=== PATIENT | female | born 1945 | race Caucasian/White ===

== ENCOUNTER 2016-12-25 09:31 | Day surgery (SDC) | payer OTHER, MEDICARE ==
[~2016-12-25] VITALS: Ht 154.9 cm; Wt 73.0 kg
[~2016-12-25 09:31] MED LIST: 0.9% Sodium Chloride 1,000 ML IV SCH; ACET-2605 PO; ADAL40PE SQ; ASPI-973 PO; AZU500 PO; CHOL200047 PO; CIPR500S3 PO; FENO150C2 PO; GABA-502 PO; GLIP10TA10 PO; LACT1CAP65 PO; LEFL20TA18 PO; LEVO75CA2 PO; LOSA100T29 PO; METF500T4 PO; MULT-1018 PO; OXYB5TAB10 PO; Sodium Chloride LOK Flush 10 mL Syringe IV PRN; TIMO1DRO4 AFFECT_EYE; fentaNYL-PF 50 mCg/mL 2 mL Inj IVPUSH PRN
[2016-12-25] MEDS ORDERED: KAVINACE PO (09:59)
[2016-12-25 10:02] VITALS: BP 166/86; PULSE 95; RESP 16; O2SAT 95
[2016-12-25 10:58] VITALS: BP 177/80; PULSE 80; RESP 14; O2SAT 94
[2016-12-25 11:08] VITALS: BP 166/78; PULSE 82; RESP 14; O2SAT 94
[2016-12-25 11:18] VITALS: BP 145/71; PULSE 76; RESP 16; O2SAT 92
[2016-12-25 11:28] VITALS: BP 143/78; PULSE 64; RESP 16; O2SAT 94
--- NOTE | 2016-12-25 14:02 | ENDO ---
[address] [address] ENDOSCOPY PROCEDURE PATIENT: ASHU REAL : 1945 MR#: [id number] ADMIT: 12/25/2016 JOB ID: [id number] TYPE OF OPERATION: Esophagogastroduodenoscopy, biopsy. Colonoscopy, biopsy. PREOPERATIVE DIAGNOSIS(ES): Abnormal laboratories and change in bowel habits. POSTOPERATIVE DIAGNOSIS(ES): 1. Normal upper endoscopy, status post biopsy. 2. Abnormal mucosa seen at the ileocecal valve, status post biopsy and gastrointestinal spot tattoo, 9 cc. 3. Small internal hemorrhoids. ANESTHESIA: Fentanyl 150 mcg, Versed 7 mg IV administered. COMPLICATIONS: None. BLOOD LOSS: Minimal. DESCRIPTION OF PROCEDURE: After risks and benefits explained to the patient, informed consent was obtained. After anesthesia administered, an upper endoscope was then inserted in the mouth, intubating the esophagus, stomach, to the second portion of duodenum, and mucosa carefully examined. After procedure, scope withdrawn, procedure terminated. Colonoscope was then inserted from the rectum to the terminal ileum. Mucosa carefully examined. Prep of the patient was excellent. After procedure was done, the scope withdrawn procedure terminated. FINDINGS: Upon inspection of the esophagus, esophagus was normal without masses, ulcers, or lesions. Z-line located at 35 cm from the incisors. Upon entering the stomach, the stomach was normal without masses, ulcers, or lesions. Retroflexion of the duodenal bulb, first and second portion normal. Biopsies taken at the duodenum. Upon inspection of the anus, no masses, hemorrhoids, ulcers, fissures were seen. Throughout the entire examination, there was abnormal mucosa that was seen at ileocecal valve. Several biopsies were taken at this site. Intubation of terminal ileum proved normal. Biopsies taken at the terminal, random colon. A GI spot tattoo was deployed, 9 cc, at the site of the abnormal mucosa at ileocecal valve. Retroflexion showed small internal hemorrhoids. IMPRESSIONS: 1. Normal upper endoscopy, status post biopsy. 2. Small internal hemorrhoids. 3. Abnormal mucosa seen at the ileocecal valve that was broad-based, status post gastrointestinal spot tattoo, 9 cc, and biopsy. RECOMMENDATIONS: Await pathology results. If the abnormal mucosa of the ileocecal valve proves to be an adenoma or tubulovillous adenoma or malignancy, then I would highly recommend General Surgery consultation for evaluation for this to be resected given the extension of this abnormal mucosa. Await biopsy results.
--- NOTE | 2016-12-28 14:56 | PATH ---
SURGICAL PATHOLOGY Attending Physician:Ki Perez MD CASE STATUS: Signed Out PATIENT NAME: ASHU REAL PID: [id number] : 1945 DATE COLLECTED:12/25/2016 16:07 SPECIMEN: 1: Duodenum, Biopsy 2: Ileum, Biopsy 3: Small Intestine/Bowel, Biopsy 4: Colon, Biopsy CLINICAL HISTORY: 1). DUODENUM BIOPSY 2). TERMINAL IILEUM 3). ILEOCECAL BIOPSY 4). RANDOM COLON FINAL DIAGNOSIS: 1. Duodenum Biopsy: Duodenal mucosa with no diagnostic alterations. Negative for inflammation, celiac, dysplasia and malignancy. 2. Terminal Ileum Biopsy: Ileal mucosa with no diagnostic alterations. Negative for inflammation, granulomas, dysplasia and malignancy. 3. Ileocecal Valve Biopsy: Tubular adenoma, multiple fragments. 4. Random Colon: Colonic mucosa with no diagnostic alterations. Negative for inflammation, dysplasia and malignancy. ICD10 D12.0 GROSS DESCRIPTION: The specimen is received in four formalin filled containers labeled with the patient's name. 1). The specimen is sublabeled "duodenal" and consists of 2 portions of tissue which aggregate to 0.4 x 0.3 x 0.2 CM. The specimen is entirely submitted in cassette 1A. 2). The specimen is sublabeled "terminal ileum" and consists of a 0.3 x 0.3 x 0.3 CM portion of tissue which is entirely submitted in cassette 2A. 3). The specimen is sublabeled "ileocecal" and consists of 4 portions of tissue which aggregate to 0.4 x 0.4 x 0.3 CM. The specimen is entirely submitted in cassette 3A. 4). The specimen is sublabeled "random colon" and consists of 5 portions of tissue which aggregate to 0.5 x 0.5 x 0.2 CM. The specimen is entirely submitted in cassette 4A. 12/25/2016 DAC MICRO DESCRIPTION: Please see diagnosis. ICD-9 CODES: CPT CODES: 1: 26121 2: 57837 3: 67698 4: 90096 Electronically Signed Out Gisela Villegas MD [facility] Pathology [facility], [place] [address] Technical component performed at [facility], [facility] [address], [place], [address]
[2017-03-02] MEDS ORDERED: VIT1TABL83 PO (11:07)
[2017-03-02] MEDS ORDERED: CRAN300T PO (11:07)
[2017-03-02] MEDS ORDERED: LATA2.5D6 AFFECT_EYE (11:07)
[2017-03-02] MEDS ORDERED: ATRV10T PO (11:07)
== END 2016-12-25 23:59 | disposition home or self-care (01) ==
LOC: END 09:31
PROVIDERS: ATTEND Internal Medicine Gastroenterology
DX: D12.0 Benign neoplasm of cecum (principal); K64.8 Other hemorrhoids; R19.4 Change in bowel habit; R89.9 Unspecified abnormal finding in specimens from other organs, systems and tissues; E11.9 Type 2 diabetes mellitus without complications; Z79.82 Long term (current) use of aspirin; Z79.899 Other long term (current) drug therapy
CPT/HCPCS: 43239; 45380; 45381; 99153; G0500; J7030

== ENCOUNTER 2017-03-03 09:04 | Inpatient (IN) | payer OTHER, MEDICARE ==
[2017-03-03] VITALS (15 sets, daily range): BP systolic 141–179; BP diastolic 65–93; PULSE 79–100; RESP 10–20; O2SAT 93–100
[~2017-03-03] VITALS: Ht 154.9 cm; Wt 90.5 kg
[2017-03-03] MEDS: Lactated Ringer's 1,000 ML IV SCH ×3 (05:00→11:49)
[~2017-03-03 09:04] MED LIST changes: -0.9% Sodium Chloride 1,000 ML IV SCH; +ATRV10T PO; +CRAN300T PO; +CeFAZolin Inj 2 GM in IV Premix 1 EACH IV ONE; +KAVINACE PO; +LATA2.5D6 AFFECT_EYE; -MULT-1018 PO; -Sodium Chloride LOK Flush 10 mL Syringe IV PRN; +VIT1TABL83 PO; -fentaNYL-PF 50 mCg/mL 2 mL Inj IVPUSH PRN; +metroNIDAZOLE Inj 500 MG in IV Premix 1 EACH IV ONE
[2017-03-03] MEDS ORDERED: OXYC-474 PO (09:50)
[2017-03-03] MEDS ORDERED: DIPH25CA6 PO (09:51)
[2017-03-03] MEDS ORDERED: Insulin Human REGular Inj 100 UNIT in 0.9% Sodium Chloride-Pha MIX 100 ML IV SCH (10:27)
[2017-03-03] MEDS ORDERED: Dextrose 5% 0.45% NaCl 1,000 ML IV PRN (10:27)
--- NOTE | 2017-03-03 10:55 | PCM.HPANE ---
Patient Data Date of Service: Mar 03, 2017 Surgeon Admitting Provider: Attending Provider:Danyell Chritsensen MD Primary Care Physician:Maritza Vazquez MD Other Provider:Cosmo Christianson Anesthesia Reason for Visit Benign Neoplasm Of Colon Ht/WT & BMI Height (Feet): 5 Height (Inches): 1 Weight (Kilograms): 90.5 Body Mass Index 37.00 Allergies Coded Allergies: shellfish derived (Verified Allergy, Severe, UNKNOWN, 03/02/17) iodine (Verified Allergy, Intermediate, UNKNOWN, 03/02/17) bee pollen (Verified Allergy, Unknown, UNKNOWN, 03/02/17) Uncoded Allergies: ANYTHING THAT COMES OUT OF OCEAN (Allergy, Severe, anaphalaxis, 03/03/17) Past Anesthesia History Anesthesia History: Denies:: Anesthesia Reactions, Fam Anesthesia Reaction, Fam Malignant Hypertherm, Malignant Hyperthermia Diabetes History Hx Diabetes?: Yes Type of Diabetes: Type II Glycemic Control: Oral Medication Current Bedside Blood Glucose: 236 MRSA MRSA: No Medications Blood Thinner: Aspirin Hypertension Medication: Yes (LOSARTAN) Home Meds Incl Beta Tuan: No Reported Medications diphenhydrAMINE HCl (Benadryl)25 Mg Cuilhou29 Mg PO Q4 PRN For Itching Ref 0 03/03/17 Oxycodone (Roxicodone)5 Mg Tablet5 Mg PO Q4H PRN For Pain Ref 0 03/03/17 Vit B Comp/C/FA/Iron/Vit E (Vitamin B Complex Tablet)1 Each Tablet1 Each PO DAILY 03/02/17 Cranberry Extract (Cranberry)300 Mg Daivzl222 Mg PO BID 03/02/17 Latanoprost 2.5 Ml Drops1 Gtt AFFECT_EYE HS #1 BOTTLE 03/02/17 Atorvastatin (Lipitor)10 Mg Tab10 Mg PO DAILY Ref 0 03/02/17 [Kavinace] No Conflict Check1 Tab PO HS 12/25/16 Cholecalciferol (Vitamin D3) (Vitamin D3)2,000 Unit Capsule1,000 Unit PO DAILY 12/24/16 Acetaminophen/Diphenhydramine (Tylenol Pm Ex-Strength Caplet)500 Mg-25 Mg Tablet1 Each PO 12/24/16 Levothyroxine (Tirosint)75 Mcg Uduwkjy60 Mcg PO DAILY 12/24/16 Timolol Maleate/Pf (Timoptic 0.5% Ocudose Drop)1 Each Droperette1 Each AFFECT_ EYE BID 12/24/16 Sulfasalazine 500 Mg Tablet1,500 Mg PO BID 30 Days Ref 0 12/24/16 Lactobacillus Acidophilus (Probiotic)1 Each Capsule1 Each PO BID 12/24/16 Oxybutynin Chloride 5 Mg Tablet5 Mg PO BID Ref 0 12/24/16 Metformin 500 Mg Zfvyyr337 Mg PO BID Ref 0 12/24/16 Losartan Potassium 100 Mg Zsfvcq219 Mg PO DAILY 12/24/16 Leflunomide 20 Mg Ftvijq17 Mg PO DAILY 12/24/16 Adalimumab (Humira)40 Mg/0.8 Ml Pen.ij.kit40 Mg SQ q2 weeks 12/24/16 Glipizide 10 Mg Okyuzy85 Mg PO BID 30 Days TAKES 5MG IN AM; 10MG IN PM 12/24/16 Gabapentin 300 Mg Gfkywxi811 Mg PO DAILY Ref 0 12/24/16 Fenofibrate (Lipofen)150 Mg Evzegxy495 Mg PO DAILY 12/24/16 Ciprofloxacin 500 Mg/5 Ml Carmen.mc.nds340 Mg PO HS 12/24/16 Aspirin 81 Mg Ytkkix88 Mg PO DAILY Ref 0 12/24/16 Discontinued Reported Medications Multivitamin (Multi Vitamin Daily)1 Each Tablet1 Each PO DAILY 30 Days Ref 0 12/24/16 History History of ENT Problems?: Yes HEENT History: Positive for:: Glaucoma Denture Type: None Teeth Condition: Tooth Decay Missing Teeth Other HEENT Pertinent History: S/P TONSILLECTOMY Hx of Heart Problems?: Yes Cardiovascular History: Positive for:: Hypertension (HYPERLIPIDEMIA) Denies:: AICD Chest Pain Heart Murmur Pacemaker Valvular Heart Disease Other Cardiac History: no [place] Hx of Respiratory Problem?: No Respiratory History: Denies:: Use of C-PAP Machine Hx Neurologic Problems?: Yes Neurological History: Denies:: CVA Seizures TIA Other Neurological Pertinent: C/OF NEUROPATHY; R-sided flank pain from nephroureterolithiasis Hx of GI Problems?: Yes Gastrointestinal History: Positive for:: Gastroesphageal Reflux Other GI Pertinent History: S/P VENTRAL HERNIA RPR; nausea/emesis this AM; adenoma colon cancaer Hx of Problems?: Yes Genitourinary History: Positive for:: Kidney Stones (=CURRENT PROBLEM) Urinary Tract Infection (HX UROSEPSIS) Denies:: HX of Hemodialysis (HX CHRONIC RENAL INSUFFICIENCY) Other Pertinent History: R ureter proximal obstruction calculus Female Hx: Denies:: Currently Skin History: Positive for:: History Skin Disorders? (S/P SKIN CA'S (FACE,NECK )) Denies:: Pressure Ulcers Hx Musculoskeletal Problems?: Yes Musculoskeletal History: Positive for:: Musculoskeletal Trauma (S/P SHOULDER RPR) Rheumatoid Arthritis Denies:: Back Injury (C/OF BACK, NECK PAIN) Hx of Psycho/Social Problems?: No Hx Surgeries?: Yes (ARIN, EXPLORATORY LAP, TUBAL, TONSILS, EXC SKIN CA, VENTRAL HERNIA,CTR,LAMI) Hx Any Other Health Problems?: Yes Other History: Positive for:: Cancer (SKIN CA'S-FACE, NECK) Thyroid Disease Denies:: Endocrine Disease Hospitalization Hx Diabetes: YesBedside Blood Glucose: 236 Hx Alcohol Use: Yes (RARE)Hx Substance Use: No Smoking Status: Never Smoker Have You Smoked inLast 12 mo: No Stop/Bang Treated for Sleep Apnea?: No Do You Have a CPAP Machine?: No S-Snoring: Do You Snore Loudly: No T-Tired: feel tired, fatigued: No O-Obsered: Observed not breath: No P-Blood Pressure: treated: Yes B- Body Mass Index > 35 kg/m2: Yes A- Age over 50: Yes N- Neck Large Circumference: No G- Gender Male: No JENNIFER Total Score: 3 JENNIFER Risk Assessment: Low Risk, <3 Yes Risk Assessment Category Category 1A: Patient has history of documented sleep apnea, and HAS NOT received any narcotic, sedative or anesthesia administration during this stay. Category 1B: Patient has history of documented sleep apnea, and HAS received any narcotic , sedative or anesthesia administration during this stay Category 2: Patient has SUSPECTED Obstructive Sleep Apnea, and HAS received any narcotic , sedative or anesthesia administration during this stay. Category 3: Patient has SUSPECTED Obstructive Sleep Apnea and HAS NOT received narcotic, sedative or anesthesia administration during this stay. Category 4: Outpatient in Procedural Areas with known sleep apnea or who screen positive for High Risk via the STOP/BANG questionnaire. Exam Exam Vital Signs Vital Signs Date Time Temp Pulse Resp B/P Pulse Ox O2 Delivery O2 Flow Rate FiO2 03/03/17 09:41 36.1 79 15 155/69 93 Room Air General Appearance: Alert, Oriented X3, Cooperative, No Acute Distress HEENT/AIRWAY: MP 3, Neck Movement (FROM, short & thick), Mouth Opening (3), Other (TMD<3) Lungs: Normal Air Movement Heart: Exam Unremarkable, Regular Rate/Rhythm, Normal S1, Normal S2, No Murmurs /Rubs/Gallops Meds/Labs/Diagnostics Admission Meds Current Medications Lactated Ringer's (Lr) 1,000 ml @ 120 mls/hr Q8H20M IV Last administered on 09:32; Start 03/03/17 at 05:00; Stop 03/03/17 at 13:19 Acetaminophen (Tylenol IV) 1,000 mg STK-MED ONCE IV Last administered on 10:31; Start 03/03/17 at 09:28; Stop 03/03/17 at 09:32; Status DC Bedside Blood Glucose: 236 Labs Test 03/03/17 10:18 Plan Impression Patient chart reviewed, patient interviewed and anesthestic plan with risks, benefits, and alternatives discussed, and informed consent obtained. NPO per Anesth. Guidelines: Yes ASA Physical Status: ASA3 Severe Disease Anesthetic Plan: GA Bene/Risks/Altern/Consents: Yes HP Complete Prior to Induction: Yes Dale Styles MD Mar 03, 2017 10:55
--- NOTE | 2017-03-03 13:02 | OP ---
[address] [address] OPERATIVE REPORT PATIENT: ASHU REAL : 1945 MR#: [id number] ADMIT: 03/03/2017 JOB ID: [id number] DATE OF SURGERY: 03/03/2017 SURGEON: Maxime Keen MD PREOPERATIVE DIAGNOSIS(ES): 1. Obstructing 7 mm right proximal ureteral calculus. 2. Intractable right renal colic. 3. Endoscopically unresectable cecal mass. POSTOPERATIVE DIAGNOSIS(ES): 1. Obstructing 7 mm right proximal ureteral calculus. 2. Intractable right renal colic. 3. Endoscopically unresectable cecal mass. OPERATION PERFORMED: 1. Cystoscopy with right ureteral stone manipulation without removal. 2. Placement right ureteral stent (6-Citizen [place] x 22-32 Multi-Length). ANESTHESIOLOGIST: Dale Styles MD ANESTHESIA: General. FINDINGS: Moderate atrophic changes. There is a grade 2 cystocele and grade 3+ rectocele. Bladder urothelium is normal throughout. Normal orifices bilaterally. No masses or stones or diverticula. PROCEDURE SUMMARY: The patient was positioned supine and was administered general anesthesia. She was then positioned in semi-lithotomy and the lower abdomen, genitalia, groin and vaginal vault were prepped and draped in sterile fashion. The 22-Citizen [place] panendoscope was then passed to the lower urinary tract with findings as described above. Next, a 0.35 Glidewire was advanced into the right ureteral orifice and distal tip coiled within the collecting system of the right renal pelvis under direct and fluoroscopic guidance. Next, 6-Citizen [place] x 22-32 cm Multi-Length stent was selected and this was advanced over the Glidewire again under direct and fluoroscopic guidance with satisfactory positioning in the right collecting system. NO RETRIEVAL LINE WAS LEFT IN PLACE. The panendoscope was then removed and a 16-Citizen Of [place] silicone Larkin catheter was then inserted into the bladder and the balloon filled to 10 cc and placed to gravity drainage. The patient was then repositioned appropriately and proceeded with planned surgery; the details of which can be found in Dr. Danyell Christensen's operative note.
[2017-03-03] MEDS ORDERED: Lactated Ringer's 1,000 ML IV SCH (13:04)
[2017-03-03] MEDS ORDERED: Lactated Ringer's 500 ML IV PRN (13:04)
[2017-03-03] MEDS ORDERED: EPHEDrine Sulfate 50 mg/mL Inj IVPUSH PRN (13:05)
[2017-03-03] MEDS ORDERED: fentaNYL-PF 50 mCg/mL 2 mL Inj IVPUSH PRN (13:05)
[2017-03-03] MEDS ORDERED: MetoCLOpramide 5 mg/mL 2 mL Inj IVPUSH PRN ×2 (13:05→16:30)
[2017-03-03] MEDS ORDERED: Phenylephrine 10,000 mCg/mL Inj IVPUSH PRN (13:05)
[2017-03-03] MEDS ORDERED: Ondansetron 2 mg/mL 2 mL Inj IVPUSH PRN ×2 (13:05→16:30)
[2017-03-03] MEDS ORDERED: Dexamethasone 4 mg/mL Inj IVPUSH PRN (13:05)
[2017-03-03] MEDS ORDERED: Bupivacaine-MPF 0.5% W/EPI 30 mL Inj INFILTRATE ONE (13:18)
[2017-03-03 14:12] LABS: APPEARANCE,URINE HAZY (CLEAR,HAZY); COLOR,URINE YELLOW (YELLOW); OCCULT BLOOD,URINE MODERATE (NEGATIVE); UROBILINOGEN,URINE NORMAL (NORMAL)
[2017-03-03] MEDS ORDERED: Lactated Ringer's 1,000 ML IV ONE ×2 (16:11→17:54)
--- NOTE | 2017-03-03 16:44 | PCM.SURGOP ---
Surgical Operative Report Date of Service: Mar 03, 2017 Pre Operative Diagnosis Endoscopically unresectable tubular adenoma of the cecum Post Operative Diagnosis Endoscopically unresectable tubular adenoma of the cecum Procedure: Laparoscopic right colectomy with primary anastomosis Surgeon and Administrative And Program Specialist: Surgeon: Danyell Christensen MD Assistants: Zack Gandara M.D.; Vijay Rogers PA-C; Cecille Bender MS3 Surgical assistants were necessary for dissection, retraction, and intraoperative decision making. Indication for Procedure This is a 71-year-old woman who presented with hard, pencil thin stools, and underwent colonoscopy during which a polyp was seen at the ileocecal valve that was not resectable endoscopically. Biopsies were performed revealing fragments of tubular adenoma, and a tattoo was performed by the professional tutor. She was referred for surgical resection. Findings: 1. The specimen was opened on the back table and the endoscopically unresectable polyp was immediately adjacent to the ileocecal valve. It was soft and had a benign appearance. It was next to the tattoo placement the professional tutor. 2. The patient had a small calcified nodule in the pelvis seen on CT scan. This was not easily identified laparoscopically and therefore was not removed. Procedure Details The patient was brought to the operating room and placed in supine position. General endotracheal anesthesia was smoothly induced. A warming blanket and SCDs were placed. In the past several days, the patient was found to have an obstructing right ureteral calculus. She had been seen in consultation by Dr. Keen of urology, and an anesthesia consultation had also been performed. The decision was made to proceed with the case and place a temporizing right ureteral stent until she could get definitive treatment for the calculus. Therefore, a right ureteral stent was placed after induction of anesthetic by Dr. Keen. She was then repositioned into supine position with both arms tucked and well padded. A Larkin had been placed. Antibiotics were infused. The operative field was prepped and draped in sterile fashion. A pause was performed to confirm the correct patient, procedure, and site. The abdomen was accessed under direct vision using a Lucero port via a left upper quadrant 5 mm incision.Inspection of the abdomen revealed the tattooed lesion in the cecum. Three additional ports were placed just above the umbilicus, in the midline below the umbilicus, and in the left lower quadrant of the abdomen. The ileocolic vessels were identified, and window of the mesentery on either side of them was created in order to proceed with [id number] dissection. Dissection proceeded toward the take-off of the ileocolic artery in order to obtain an adequate lymphatic resection from an oncologic standpoint. The ileocolic artery was controlled with a Hemoclip on the patient side and was divided with the LigaSure device on the specimen side. The ileocolic vein was divided with a Ligasure. The plane between the colonic mesentery and retroperitoneum was then developed up to the hepatic flexure, and overlying mesentery was taken down. The duodenum was easily identified and protected. The mesentery of the colon was mobilized off of the duodenum, which was medialized in order to bring down the hepatic flexure. The omentum was taken off of the proximal transverse colon with the Ligasure. Of note, due to the patient's previous Jeaneth incision and subsequent incisional hernia repair at that site, the transverse colon was adhesed to the anterior abdominal wall, which actually assisted with retraction and dissection. The specimen had to be dissected off of the anterior abdominal wall for this reason. The lateral attachments of the right colon were then taken down in order to mobilize the right colon. This was accomplished with relative ease given that the majority of the dissection had been performed in a medial to lateral plane. The lateral attachments of the terminal ileum were also taken down to medialize it. Intracorporeal anastomosis was then performed in isoperistaltic fashion. A stay suture was placed on both the terminal ileum and colon, enterotomies were made, the 65 mm blue load stapler was inserted into each limb, and fired. The enterotomy was closed with a running looped V-lock suture and was secured with an absorbable clip using a Lapra-Ty device. A 4 cm Pfannenstiel incision was then created and the specimen was removed. Fascia on this incision was then closed with a running 2-0 PDS stitch. The 12 mm port site in the left lower quadrant was closed with an interrupted 0 PDS stitch laparoscopically. Marcaine 0.5% with epinephrine had been injected at all port sites previously in the case. Ports were removed. Skin was closed with 4-0 Monocryl. Sterile dressings were applied. The patient was taken to the postoperative care unit in good condition. Complications There were no periprocedural complications identified. Surgical Specimen Removed: Yes Specimen sent to Pathology: Yes Surgical Specimen description: Terminal ileum and right colon, approximately 60 cm in length. The specimen was opened on the back table and there was a soft 3 cm polyp right at the ileocecal valve, which did not appear malignant. Anesthetic Plan: GA Grafts, Implants: None Output, Estimated Blood Loss: 10 (ml) Blood Administration during dougherty: No Danyell Christensen MD Mar 03, 2017 16:44 stitch x2. The abdomen was then re-insufflated and hemostasis was confirmed. The anastomosis was in good orientation without twisting of the small bowel mesentery or rotation of the colon. Marcaine 0.5% with epinephrine had been injected at all port sites previously in the case. At this point, 20 mL of liposomal bupivacaine was injected at all port sites, with most being focused on the 4 cm supraumbilical fascial incision. Once this was complete, all of the ports were removed. The infraumbilical port site was closed with an interrupted 0 PDS stitch. The midline ports were irrigated and cyndee were used for closure. Sterile dressings were applied. The patient was taken to the postoperative care unit in good condition. Complications There were no periprocedural complications identified. Anesthetic Plan: Danyell Hickey MD Mar 03, 2017 16:44
[2017-03-03] MEDS: HYDROmorphone 1 mg/mL Inj IVPUSH PRN ×2 (16:55→17:17)
[2017-03-03 17:19] LABS: BASOPHILS % (AUTO) 0.1 % (0-3); EOSINOPHILS % (AUTO) 1.5 % (0-5); MONOCYTES % (AUTO) 4.6 % (4-12); Mean Corpuscular Hemoglobin 31.9 pg (27.0-35.0); NEUTROPHILS % (AUTO) 76.9 % (40-74); Platelet Count 222 bil/L (150-400)
[2017-03-03] MEDS ORDERED: Promethazine Inj 12.5 MG in Dextrose 5%-Pha MIX 50 ML IV ONE (17:45)
[2017-03-03] MEDS: Acetaminophen IV 1,000 MG in IV Premix 1 EACH IV SCH (18:31)
--- NOTE | 2017-03-03 19:31 | PCM.ANEP1 ---
Post Anesthesia PACU Phase 1 Assessment Date of Service: Mar 03, 2017 Vital Signs Vital Signs Date Time Temp Pulse Resp B/P Pulse Ox O2 Delivery O2 Flow Rate FiO2 03/03/17 19:00 81 14 178/71 99 Nasal Cannula 3 03/03/17 18:30 82 13 179/73 99 Nasal Cannula 3 03/03/17 18:15 35.6 88 14 168/70 98 Nasal Cannula 3 03/03/17 18:00 87 16 171/89 97 Nasal Cannula 3 03/03/17 17:45 88 11 162/71 96 Nasal Cannula 3 03/03/17 17:30 81 18 168/83 98 Nasal Cannula 3 03/03/17 17:20 84 14 161/65 98 Nasal Cannula 4 03/03/17 17:10 88 12 163/84 98 Nasal Cannula 4 03/03/17 17:00 85 16 161/93 99 Nasal Cannula 4 03/03/17 16:55 87 16 147/73 97 Nasal Cannula 4 03/03/17 16:50 91 19 141/77 100 Simple Mask 8 03/03/17 16:45 93 15 159/68 99 Simple Mask 8 03/03/17 16:40 36.1 100 10 166/82 98 Simple Mask 8 Anesthetic Administered: GA Level of Alertness: Sleepy, easy to arouse HAWK's with Equal Strength: Yes Pain: No Pain Scale Score: 0 Nausea or Vomiting: No CV Function & Hydration Stable: Yes Airway Device: none in PACU Oxygen Delivery: Simple Mask Lungs: Normal Air Movement PACU Phase 2 Assessment Complications: No Follow up Care: N/A Patient Instructions Provided: N/A Comments 03/03/17 19:00 81 14 178/71 99 Nasal Cannula 3 Dale Styles MD Mar 03, 2017 19:31
[2017-03-03] MEDS ORDERED: Rocuronium 10 mg/mL 5 mL Inj ONE (19:33)
[2017-03-03] MEDS ORDERED: Propofol 10,000 mCg/mL 20 mL Inj ONE (19:33)
[2017-03-03] MEDS ORDERED: Lidocaine PF 1% 30 mL Inj ONE (19:33)
[2017-03-03] MEDS ORDERED: Succinylcholine Chloride 20 mg/mL 5 mL Inj ONE (19:33)
[2017-03-03] MEDS ORDERED: Ketamine 10 mg/mL 20 mL Inj ONE (19:33)
[2017-03-03] MEDS ORDERED: HYDROmorphone 2 mg/mL Inj ONE (19:33)
[2017-03-03] MEDS ORDERED: fentaNYL-PF 50 mCg/mL 2 mL Inj ONE (19:33)
[2017-03-03] MEDS ORDERED: Ondansetron 2 mg/mL 2 mL Inj ONE (19:33)
[2017-03-03] MEDS ORDERED: Dexamethasone 4 mg/mL Inj ONE (19:33)
[2017-03-03] MEDS: Dextrose 5% Lactated Ringer's 1,000 ML IV SCH (19:57)
[2017-03-03] MEDS: Timolol 0.5% 5 mL Ophthalmic Solution BOTH_EYES SCH (21:32)
[2017-03-03] MEDS: Heparin 5,000 Unit/mL Inj SUBQ SCH (21:59)
[2017-03-04] MEDS: HYDROmorphone 0.5 mg/0.5 mL iSecure Syringe IVPUSH PRN ×2 (00:14→05:32)
[2017-03-04 00:24] VITALS: BP 133/76; PULSE 79; RESP 20; O2SAT 96
[2017-03-04] MEDS: Acetaminophen IV 1,000 MG in IV Premix 1 EACH IV SCH ×4 (02:30→20:30)
[2017-03-04 04:19] VITALS: BP 124/73; PULSE 82; RESP 20; O2SAT 96
[2017-03-04] MEDS: Heparin 5,000 Unit/mL Inj SUBQ SCH ×3 (05:35→22:27)
[2017-03-04 05:38] LABS: BASOPHILS % (AUTO) 0.1 % (0-3); EOSINOPHILS % (AUTO) 1.7 % (0-5); MONOCYTES % (AUTO) 11.3 % (4-12); Mean Corpuscular Hemoglobin 31.4 pg (27.0-35.0); Mean Corpuscular Volume 97.2 fL (81-100); Platelet Count 176 bil/L (150-400)
--- NOTE | 2017-03-04 08:00 | PROG NOTE ---
[address] [address] PROGRESS NOTE PATIENT: ASHU REAL : 1945 MR#: [id number] ADMIT: 03/03/2017 JOB ID: [id number] DATE: 03/04/2017 Postoperative day #1 status post cystoscopy and right ureteral stent placement and laparoscopic right colectomy with primary reanastomosis. SUBJECTIVE: She is sitting upright in bed without any complaint of pain or distress. OBJECTIVE: Temperature 36.7, pulse 82, respirations 20, blood pressure 124/73. Eight hour urine output 850 cc (clear). Examination not performed. LABORATORIES: March 04, 2017: WBC 6.9, hemoglobin 10.1, hematocrit 31.3. Creatinine 1.03. Urinalysis March 03, 2017 is nitrite positive with moderate occult blood, a few bacteria were seen. Culture has been set up. IMPRESSION: 1. Stable postoperative day #1 status post cystoscopy right ureteral stent placement for obstructing proximal right ureteral calculus. 2. Left nephrolithiasis. 3. Possible urinary tract infection culture pending. PLAN: 1. Follow up on urine culture and sensitivity. 2. She is currently scheduled for a return visit for outpatient right ESWL possible cystoscopy and stent removal March 18, 2017 at [facility].
--- NOTE | 2017-03-04 08:07 | PCM.DISURG ---
Danyell Christensen MD 03/04/17 0807: Surgical Discharge Instruction Date of Service Mar 04, 2017 Dates of Hospitalization Date of Hospital Admission Mar 03, 2017 at 19:32 Providers Admitting Physician: Danyell Christensen MD Primary Care Physician: Maritza Vazquez MD Attending Physician: Danyell Christensen MD Discharge Diagnosis Post Operative diagnosis Endoscopically unresectable tubular adenoma of the cecum Additional Instructions Additional Instructions She is currently scheduled for a return visit for outpatient right ESWL possible cystoscopy and stent removal March 18, 2017 at [facility] with Maxime Keen. Follow Up Plan Follow Up Plan F/U with Dr. Christensen in 2 weeks. F/U as noted above for ESWL with Maxime Keen. Vijay Rogers PA-C 03/05/17 1024: Surgical Discharge Instruction Discharge Diagnosis Discharge Diagnosis Primary diagnoses: 1. Endoscopically unresectable tubular adenoma of the cecum 2. Obstructing 7 mm right proximal ureteral calculus. 3. Intractable right renal colic. Other chronic conditions: 1. Hypothyroidism 2. Rheumatoid arthritis on Humira 3.Hypertension 4.Type II diabetes. She verbally reports that her last 11 A1c was 5.6, and before that it was 5.9. 5.Neuropathy 6.Nonmelanoma skin cancers of the face and neck status post resection 7.Chronic renal failure, creatinine 1.11 8.History of urosepsis, on chronic ciprofloxacin for prophylaxis of the same Activity Discharge Activity-General: Activity as pain allows, No lifting >15 pounds for 2 weeks, No driving while taking narcotic Dressing and Incisional Care Dressing Care: Allow Steri Stripes to fall off Hygiene: May shower Follow Up Plan Mid-level Provider (F9): Danyell Christensen MD Follow-up appointment: Date (03/17/2017) Call your provider for: Fever, Chills, Increasing abdominal pain, Nausea, Vomiting, Wound redness, Increasing wound pain, Warmth to touch, Discharge @ incision, pus discharge Danyell Christensen MD Mar 04, 2017 08:07 Vijay Rogers PA-C Mar 05, 2017 10:24
--- NOTE | 2017-03-04 08:13 | PCM.PNSURG ---
Subjective Visit Information: Reason for Visit Benign Neoplasm Of Colon Surgery/Surgery Date Post-Op Day # Date of Admission: Mar 03, 2017 at 19:32 Hospital Day # Subjective: Stable overnight. Normal vitals. Hct 31, WBC 6.9, PLT 176. BMP normal except K 3.4, Cr 1.03. Insulin gtt running, preop she was in 200s, down to 114 this am. Range 114-194 since surgery. No flatus or BM. Has not been out of bed. Objective Vital Sign- Last 8 Hours Date Time Temp Pulse Resp B/P Pulse Ox O2 Delivery O2 Flow Rate FiO2 03/04/17 05:39 Supplement Oxygen 03/04/17 04:19 36.7 82 20 124/73 96 Nasal Cannula 2.00 03/04/17 00:24 36.6 79 20 133/76 96 Nasal Cannula 2.00 Intake and Output- Last 8 Hour 03/04/17 Cumulative From/Thru 07:00 03/02/17 11:08 - 03/04/17 05:48 Intake Total 375 ml 2075.5 ml Output Total 850 ml 1160 ml Balance -475 ml 915.5 ml Intake Oral 375 ml 375 ml IV Total 1700.5 ml Output Urine Total 850 ml 1150 ml Estimated Blood Loss 10 ml # Bowel Movements 0 0 General: Alert, Oriented X3, Cooperative, No Acute Distress Abdomen: Soft, Appropriately tender, Non-distended Result Diagram: 03/04/17 0450 03/04/17 0450 Assessment & Plan Impression POD1 R hemicolectomy for endoscopically unresectable cecal polyp. Problems: Plan Advance to FLD. Continue MIVF as she has not had much by mouth yet. Ambulate TID Larkin out Continue home meds 20U glargine this am, continue insulin gtt for not and anticipate wean off. Await return of bowel function. F/U for ESWL with Dr. Keen 03/18 per his note. Danyell Christensen MD Mar 04, 2017 08:13
[2017-03-04] MEDS: LEFLUNOMIDE 20MG PO SCH (08:30)
[2017-03-04] MEDS ORDERED: Insulin GLARgine 100 Unit/mL Syringe SUBQ ONE (08:30)
[2017-03-04] MEDS: Dextrose 5% Lactated Ringer's 1,000 ML IV SCH ×2 (08:54→16:50)
[2017-03-04] MEDS: Sulfasalzine 500 mg Tablet PO SCH ×2 (08:56→17:25)
[2017-03-04] MEDS: Timolol 0.5% 5 mL Ophthalmic Solution BOTH_EYES SCH ×2 (08:56→22:27)
[2017-03-04] MEDS: Multivit-Miner-Folic Acid-Iron Tablet PO SCH (08:57)
[2017-03-04 09:10] VITALS: BP 146/84; PULSE 83; RESP 18; O2SAT 97
[2017-03-04] MEDS ORDERED: HYDROmorphone 0.5 mg/0.5 mL iSecure Syringe IVPUSH PRN (12:00)
[2017-03-04] MEDS: Polyethylene Glycol (PEG) 17 Gm Powder PO SCH (12:00)
[2017-03-04 12:14] LABS: Mean Corpuscular Hemoglobin 31.5 pg (27.0-35.0); Mean Corpuscular Volume 97.7 fL (81-100)
[2017-03-04 13:56] VITALS: BP 116/70; PULSE 87; RESP 18; O2SAT 94
[2017-03-04 22:07] VITALS: BP 134/71; PULSE 85; RESP 18; O2SAT 96
[2017-03-05] MEDS: Acetaminophen IV 1,000 MG in IV Premix 1 EACH IV SCH ×2 (02:30→08:22)
[2017-03-05 04:40] VITALS: BP 147/80; PULSE 76; O2SAT 96
[2017-03-05] MEDS ORDERED: Glucose 40% Oral Gel 15 Gm Tube PO PRN (05:45)
[2017-03-05] MEDS ORDERED: Dextrose 10% 250 ML IV PRN (05:45)
[2017-03-05] MEDS: Dextrose 5% Lactated Ringer's 1,000 ML IV SCH (05:58)
[2017-03-05] MEDS: Heparin 5,000 Unit/mL Inj SUBQ SCH (06:53)
[2017-03-05] MEDS: Insulin LISPRO 300 Unit/3 mL Inj SUBQ SCH ×2 (08:00→12:19)
[2017-03-05] MEDS: LEFLUNOMIDE 20MG PO SCH (08:30)
--- NOTE | 2017-03-05 10:15 | PCM.PNSURG ---
Subjective Date of Service: Mar 05, 2017 Visit Information: Reason for Visit Benign Neoplasm Of Colon Surgery/Surgery Date Post-Op Day #2 Date of Admission: Mar 03, 2017 at 19:32 Hospital Day # Subjective: Eating soft foods with no nausea or vomiting. Had several bowel movements yesterday and continues to have bowel movements this morning. Ambulatory without assistance. Not using any pain medication and she has no pain. Intends to stay at [facility] tonight prior to taking the ferry home to [facility] tomorrow. Postop General: No Complaints Gastrointestinal: Good Appetite, Tolerating Oral Feedings, No N/V, Passing Stool Pain Management: No or Minimal Pain Postop Activity: Ambulating Independently Objective Vital Sign- Last 8 Hours Date Time Temp Pulse Resp B/P Pulse Ox O2 Delivery O2 Flow Rate FiO2 03/05/17 04:40 36.7 76 147/80 96 Room Air Intake and Output- Last 8 Hour 03/05/17 Cumulative From/Thru 07:00 03/02/17 11:08 - 03/05/17 06:30 Intake Total 536 ml 4115.5 ml Output Total 950 ml 3420 ml Balance -414 ml 695.5 ml Intake Oral 536 ml 2415 ml IV Total 1700.5 ml Output Urine Total 950 ml 3400 ml Estimated Blood Loss 20 ml # Bowel Movements 3 3 General: Alert, Cooperative, No Acute Distress Lungs: Clear to Auscultation Heart: Regular Rate/Rhythm Abdomen: Soft, Non-tender, Protuberant SURGICAL WOUND : Wound General Appearence: Steri Strips, Sutures, Intact, Well Approximated, No Erythema, No Discharge, Other (Pfannenstiel incision is dry and intact) Extremities: Thigh&Calf Soft/Nontender Neuro: Normal Speech Catheters: None (voiding without difficulty) Result Diagram: 03/04/17 1158 03/04/17 1215 Assessment & Plan Impression Primary diagnoses: 1. Endoscopically unresectable tubular adenoma of the cecum 2. Obstructing 7 mm right proximal ureteral calculus. 3. Intractable right renal colic. Other chronic conditions: 1. Hypothyroidism 2. Rheumatoid arthritis on Humira 3.Hypertension 4.Type II diabetes. She verbally reports that her last 11 A1c was 5.6, and before that it was 5.9. 5.Neuropathy 6.Nonmelanoma skin cancers of the face and neck status post resection 7.Chronic renal failure, creatinine 1.11 8.History of urosepsis, on chronic ciprofloxacin for prophylaxis of the same Problems: Plan The patient will be discharged to the [facility] is evening with a plan to return to her home on [facility] tomorrow if she feels well. She will follow-up in the office with Dr. Christensen on 03/17/2017, a date the coincides with her procedure being performed by Dr. Olson. She is cautioned to call or return for: Fever greater than 101 that does not resolve with oral Tylenol, increasing abdominal pain, or nausea and vomiting. Or, signs of wound infection such as redness, warmth, increasing tenderness, or us discharge. Pain Management: Oral Tylenol Oxycodone for breakthrough pain VTE Prophylaxis: Sub-Q Heparin (Unfractionated) Resuscitation Status: CPR: Attempt Resuscitation copies to: Maxime Keen MD; Ki Perez MD; Maritza Vazquez MD, Fred H PA-C Mar 05, 2017 10:15
[2017-03-05] MEDS: Multivit-Miner-Folic Acid-Iron Tablet PO SCH (10:27)
[2017-03-05] MEDS: Sulfasalzine 500 mg Tablet PO SCH (10:29)
[2017-03-05] MEDS: Timolol 0.5% 5 mL Ophthalmic Solution BOTH_EYES SCH (10:31)
--- NOTE | 2017-03-05 10:33 | PCM.DC.SUR ---
Discharge Summary Date of Service: Mar 05, 2017 Date of Hospital Admission: Mar 03, 2017 at 19:32 Date of Operation(s): 03/03/2017 Date of Discharge: 03/05/2017 Diagnosis at Time of Discharge Primary diagnoses: 1. Endoscopically unresectable tubular adenoma of the cecum 2. Obstructing 7 mm right proximal ureteral calculus. 3. Intractable right renal colic. Other chronic conditions: 1. Hypothyroidism 2. Rheumatoid arthritis on Humira 3.Hypertension 4.Type II diabetes. She verbally reports that her last 11 A1c was 5.6, and before that it was 5.9. 5.Neuropathy 6.Nonmelanoma skin cancers of the face and neck status post resection 7.Chronic renal failure, creatinine 1.11 8.History of urosepsis, on chronic ciprofloxacin for prophylaxis of the same Problems: Operation 1. Laparoscopic right colectomy with primary anastomosis 2. Cystoscopy with right ureteral stone manipulation without removal. 3. Placement right ureteral stent (6-[place] x 22-32 Multi-Length). Brief History and Physical: This is a 71-year-old woman who presented to her fiber technician with complaints of hard, firm, sometimes pencil thin stools in early 2016. Colonoscopy along with upper endoscopy were performed in early December. She had an unresectable polyp on the ileocecal valve, which appeared concerning to the fiber technician, so he tattooed it. The pathology came back a tubular adenoma and fragments. The patient also has a current history of obstructing right proximal ureteral calculus. Consultants: Dr. Keen Hospital Course: The patient was admitted and underwent the above-mentioned operations without complication postsurgically her recovery was fairly uneventful. Bowel function began returning on the evening of her first postsurgical day. She was stable for discharge on her second postsurgical day. At the time of discharge she was voiding without difficulty, having frequent bowel movements, tolerating soft foods with no nausea or vomiting, having no pain/requiring no oral analgesic, ambulating without assistance, and her wounds were dry and intact. Pathology: Pending Disposition: The patient was discharged to [facility] with her and son on her second postsurgical day with the plan to return to her home on [facility] the following day. Follow-up Plan: She will follow-up in the office with Dr. Christensen on 03/17/2017 to coincide with a procedure planned to be performed by Dr. Olson on 04/17/2017. ([Kian]) 1 TAB PO HS (Reported) Acetaminophen/Diphenhydramine (Tylenol Pm Ex-Strength Caplet) 500 Mg-25 Mg Tablet 1 EACH PO (Reported) Adalimumab (Humira) 40 Mg/0.8 Ml Pen.ij.kit 40 MG SQ q2 weeks (Reported) Aspirin (Aspirin) 81 Mg Tablet 81 MG PO DAILY (Reported) Atorvastatin (Lipitor) 10 Mg Tab 10 MG PO DAILY (Reported) Cholecalciferol (Vitamin D3) (Vitamin D3) 2,000 Unit Capsule 1,000 UNIT PO DAILY (Reported) Ciprofloxacin (Ciprofloxacin) 500 Mg/5 Ml Carmen.mc.rec 500 MG PO HS (Reported) Cranberry Extract (Cranberry) 300 Mg Tablet 300 MG PO BID (Reported) Fenofibrate (Lipofen) 150 Mg Capsule 160 MG PO DAILY (Reported) Gabapentin (Gabapentin) 300 Mg Capsule 300 MG PO DAILY (Reported) Glipizide (Glipizide) 10 Mg Tablet 10 MG PO BID (Reported) TAKES 5MG IN AM; 10MG IN PM Lactobacillus Acidophilus (Probiotic) 1 Each Capsule 1 EACH PO BID (Reported) Latanoprost (Latanoprost) 2.5 Ml Drops 1 GTT AFFECT_EYE HS (Reported) Leflunomide (Leflunomide) 20 Mg Tablet 20 MG PO DAILY (Reported) Levothyroxine (Tirosint) 75 Mcg Capsule 75 MCG PO DAILY (Reported) Losartan Potassium (Losartan Potassium) 100 Mg Tablet 100 MG PO DAILY (Reported ) Metformin (Metformin) 500 Mg Tablet 500 MG PO BID (Reported) Oxybutynin Chloride (Oxybutynin Chloride) 5 Mg Tablet 5 MG PO BID (Reported) Oxycodone (Roxicodone) 5 Mg Tablet 5 MG PO Q4H PRN PRN For Pain (Reported) Sulfasalazine (Sulfasalazine) 500 Mg Tablet 1,500 MG PO BID (Reported) Timolol Maleate/Pf (Timoptic 0.5% Ocudose Drop) 1 Each Droperette 1 EACH AFFECT_ EYE BID (Reported) Vit B Comp/C/FA/Iron/Vit E (Vitamin B Complex Tablet) 1 Each Tablet 1 EACH PO DAILY (Reported) copies to: Maxime Keen MD; Ki Perez MD; Maritza Vazquez MD, Fred H PA-C Mar 05, 2017 10:33
[2017-03-05 10:52] VITALS: BP 149/77; PULSE 87
[2017-03-05] MEDS: Polyethylene Glycol (PEG) 17 Gm Powder PO SCH (12:00)
--- NOTE | 2017-03-08 10:30 | PATH ---
SURGICAL PATHOLOGY Attending Physician:Danyell Christensen MD CASE STATUS: Signed Out PATIENT NAME: ASHU REAL PID: [id number] : 1945 DATE COLLECTED:03/03/2017 00:00 SPECIMEN: Colon, Segment Resection, Non-Tumor CLINICAL HISTORY: ILEOCECAL VALVE TUBULAR ADENOMA 1). RIGHT COLON FINAL DIAGNOSIS: 1.RIGHT COLON RESECTION SPECIMEN: TUBULAR ADENOMA OCCURRING IN THE REGION OF THE ILEOCECAL VALVE, ASSOCIATED WITH INCREASED SUBMUCOSAL ADIPOSE TISSUE CONSISTENT WITH LIPOMA. MARGINS OF RESECTION NEGATIVE FOR ATYPIA. TWO BENIGN MESENTERIC LYMPH NODES IDENTIFIED. APPENDIX UNREMARKABLE. ICD10 D12.0 GROSS DESCRIPTION: The specimen consists of terminal ileum (length-8.7 cm, proximal diameter-1.7 cm), ileocecal valve, cecum and ascending colon (length-30 cm, distal diameter-2.0 cm), with attached appendix (length-8.5 cm, diameter-0.5 cm) and attached mesentery (up to 6.5 cm in depth). The resection margins are received stapled. The mucosa is nieto with normal folds. A nieto solid rubbery polypoid mass (2.0 x 1.2 x 1.2 cm) is identified involving the ileocecal valve. The mass is 8.6 cm from the proximal, 28.5 cm from the distal and 6.5 cm from the radial resection margins. The mass is 3.6 cm from the appendiceal orifice. The mass does not appear to extend through the colon wall into the mesentery. The adjacent mucosa is tattooed. The appendix is pale nieto and unremarkable. No other nodules, masses or lesions are identified. Multiple possible lymph nodes upper (0.1 x 0.1 x 0.1 cm-0.2 x 0.1-0.1 cm) are identified. Ink code: black-resection margin. Section code: (A) proximal resection margin, longitudinally sectioned, field support representative; (B) distal resection margin, longitudinally sectioned, field support representative; (C) radial resection margin, field support representative; (D-M) ileocecal valve with mass and adjacent tattooed mucosa, longitudinally sectioned, entirely submitted; (N) appendix, field support representative; (O) multiple intact lymph nodes. 03/06/17 JM MICRO DESCRIPTION: Sections are from a right colon resection specimen. In the region of the ileocecal valve the grossly-described mass consists of a tubular adenoma. The bulk of the mass consists of submucosal adipose tissue consistent with a lipoma in the region of the valve. There is no evidence of malignancy. The appendix is unremarkable. Within the mesentery two lymph nodes were identified, and these are totally benign. ICD-9 CODES: CPT CODES: 19880 Electronically Signed Out Jesus Alberto Bull MD [facility] Pathology [facility] [address], [place] [address] Technical component performed at [facility], [facility] [address], [place], [address]
== END 2017-03-05 13:52 | disposition home or self-care (01) | DRG 330 ==
LOC: SAS 09:04 → OSC 19:32
PROVIDERS: ADMIT Surgery; ATTEND Surgery
PROC: 0DBF4ZZ Excision of Right Large Intestine, Percutaneous Endoscopic Approach (ICD-10-PCS; principal; 2017-03-03 12:00)
PROC: 0T768DZ Dilation of Right Ureter with Intraluminal Device, Via Natural or Artificial Opening Endoscopic (ICD-10-PCS; 2017-03-03 12:00)
DX: D12.0 Benign neoplasm of cecum (principal); N20.1 Calculus of ureter; I12.9 Hypertensive chronic kidney disease with stage 1 through stage 4 chronic kidney disease, or unspecified chronic kidney disease; N18.9 Chronic kidney disease, unspecified; E03.9 Hypothyroidism, unspecified; M06.9 Rheumatoid arthritis, unspecified; E11.9 Type 2 diabetes mellitus without complications; Z79.84 Long term (current) use of oral hypoglycemic drugs

== ENCOUNTER → 2017-03-18 | Day surgery (SDC) | payer OTHER ==
[2017-03-18] VITALS (7 sets, daily range): BP systolic 128–142; BP diastolic 41–61; PULSE 81–92; RESP 14–17; O2SAT 93–100
[~2017-03-18] VITALS: Ht 157.5 cm; Wt 88.5 kg
[~2017-03-18] MED LIST changes: +Acetaminophen IV 1,000 MG in IV Premix 1 EACH IV ONE; +Atropine 0.4 mg/mL Inj IVPUSH PRN; +CeFAZolin 2 Gm/50 mL D5W Duplex Bag IV ONE; +CeFAZolin 2 Gm/50 mL D5W IV Premix IV ONE; -CeFAZolin Inj 2 GM in IV Premix 1 EACH IV ONE; +Dexamethasone 4 mg/mL Inj IVPUSH PRN; +Dexamethasone 4 mg/mL Inj ONE; +EPHEDrine Sulfate 50 mg/mL Inj IVPUSH PRN; +Furosemide 10 mg/mL 2 mL Inj IV ONE; +HYDROmorphone 1 mg/mL Inj IVPUSH PRN; +Labetalol 5 mg/mL 4 mL Inj IV PRN; +Lactated Ringer's 1,000 ML IV SCH; +Lactated Ringer's 500 ML IV PRN; +MetoCLOpramide 5 mg/mL 2 mL Inj IVPUSH PRN; +OXYC-474 PO; +Ondansetron 2 mg/mL 2 mL Inj IVPUSH PRN; +Ondansetron 2 mg/mL 2 mL Inj ONE; +Phenylephrine 10,000 mCg/mL Inj IVPUSH PRN; +Propofol 10,000 mCg/mL 20 mL Inj ONE; +fentaNYL-PF 50 mCg/mL 2 mL Inj IVPUSH PRN; +fentaNYL-PF 50 mCg/mL 2 mL Inj ONE; +hydrOXYzine Inj 50 MG/1 mL SDV IM PRN; -metroNIDAZOLE Inj 500 MG in IV Premix 1 EACH IV ONE
--- NOTE | 2017-03-18 06:42 | PCM.HPANE ---
Patient Data Surgeon Admitting Provider: Attending Provider:Maxime Keen MD Primary Care Physician:Maritza Vazquez MD Other Provider:Cosmo Christianson Anesthesia Reason for Visit Right Kidney Stone Ht/WT & BMI Height (Feet): 5 Height (Inches): 2 Weight (Kilograms): 92.62 Body Mass Index 37.00 Allergies Coded Allergies: iodine (Verified Allergy, Severe, Anaphalactic reactions, 03/16/17) shellfish derived (Verified Allergy, Severe, Anaphalactic reaction, ) bee pollen (Verified Allergy, Unknown, UNKNOWN, 03/02/17) Uncoded Allergies: ANYTHING THAT COMES OUT OF OCEAN (Allergy, Severe, anaphalaxis, 03/03/17) Past Anesthesia History Anesthesia History: Denies:: Abnormal Airway, Anesthesia Reactions (Really sick post op and slow to recover), Difficult Intubation, Fam Anesthesia Reaction , Fam Malignant Hypertherm, Malignant Hyperthermia Diabetes History Hx Diabetes?: Yes Type of Diabetes: Type II Glycemic Control: Oral Medication MRSA MRSA: No Medications Blood Thinner: Aspirin Last Dose Blood Thinner: Mar 15, 2017 Hypertension Medication: Yes (Fenofibribe) Reported Medications Oxycodone (Roxicodone)5 Mg Tablet5 Mg PO Q4H PRN For Pain Ref 0 03/03/17 Cranberry Extract (Cranberry)300 Mg Wclgwe655 Mg PO BID 03/02/17 Latanoprost 2.5 Ml Drops1 Gtt AFFECT_EYE HS #1 BOTTLE 03/02/17 Atorvastatin (Lipitor)10 Mg Tab10 Mg PO DAILY Ref 0 03/02/17 [Kian] No Conflict Check1 Tab PO HS 12/25/16 Cholecalciferol (Vitamin D3) (Vitamin D3)2,000 Unit Capsule1,000 Unit PO DAILY 12/24/16 Acetaminophen/Diphenhydramine (Tylenol Pm Ex-Strength Caplet)500 Mg-25 Mg Tablet1 Each PO 12/24/16 Levothyroxine (Tirosint)75 Mcg Plfugyz76 Mcg PO DAILY 12/24/16 Timolol Maleate/Pf (Timoptic 0.5% Ocudose Drop)1 Each Droperette1 Each AFFECT_ EYE BID 12/24/16 Sulfasalazine 500 Mg Tablet1,500 Mg PO BID 30 Days Ref 0 12/24/16 Lactobacillus Acidophilus (Probiotic)1 Each Capsule1 Each PO BID 12/24/16 Oxybutynin Chloride 5 Mg Tablet5 Mg PO BID Ref 0 12/24/16 Metformin 500 Mg Xmgmfn070 Mg PO BID Ref 0 12/24/16 Losartan Potassium 100 Mg Mppdsb922 Mg PO DAILY 12/24/16 Leflunomide 20 Mg Vzqjrb69 Mg PO DAILY 12/24/16 Adalimumab (Humira)40 Mg/0.8 Ml Pen.ij.kit40 Mg SQ q2 weeks 12/24/16 Glipizide 10 Mg Apaymx11 Mg PO BID 30 Days TAKES 5MG IN AM; 10MG IN PM 12/24/16 Gabapentin 300 Mg Yhoaxnm169 Mg PO DAILY Ref 0 12/24/16 Fenofibrate (Lipofen)150 Mg Giqopep631 Mg PO DAILY 12/24/16 Ciprofloxacin 500 Mg/5 Ml Carmen.mc.vfs860 Mg PO HS 12/24/16 Aspirin 81 Mg Xterch89 Mg PO DAILY Ref 0 12/24/16 Discontinued Reported Medications Vit B Comp/C/FA/Iron/Vit E (Vitamin B Complex Tablet)1 Each Tablet1 Each PO DAILY 03/02/17 History History of ENT Problems?: Yes HEENT History: Positive for:: Glaucoma Denies:: Abnormal Airway Cataracts Difficult Intubation Dysphagia Hearing Problem Sinus Problem TMJ Denture Type: None Teeth Condition: Within Normal Limits Hx of Heart Problems?: Yes Cardiovascular History: Positive for:: Hypertension (HYPERLIPIDEMIA) Peripheral Vascular (vericose veins legs) Denies:: AICD Abdominal Aortic Aneurism Atrial Fibrillation Cardiac Surgery Chest Pain Congestive Heart Failure Coronary Artery Disease Edema Heart Murmur Irregular Heartbeat Pacemaker Rheumatic Fever Thrombophlebitis Valvular Heart Disease Hx of Respiratory Problem?: Yes Respiratory History: Positive for:: Pneumonia (2 years ago, since having the vaccine) Denies:: Asthma COPD Chest Surgery Cough Dyspnea Emphysema Hemoptysis Oxygen Administration Pulmonary Embolism Tuberculosis Use of C-PAP Machine Use of Inhalers / NEBS Hx Neurologic Problems?: No Neurological History: Denies:: CVA Seizures Hx of GI Problems?: Yes Hx of Problems?: Yes Genitourinary History: Positive for:: Kidney Stones (CURRENT PROBLEM) Urinary Tract Infection (HX UROSEPSIS on Cipro propholactic) Denies:: HX of Hemodialysis (HX CHRONIC RENAL INSUFFICIENCY) Female Hx: Denies:: Currently Problems with Breasts? Skin History: Denies:: History Skin Disorders? Pressure Ulcers Hx Musculoskeletal Problems?: Yes Musculoskeletal History: Positive for:: Back Injury (surgical repair L3-4 Lami and allignment) Musculoskeletal Trauma (S/P SHOULDER RPR) Rheumatoid Arthritis Denies:: Degenerative Joint Fibromyalgia Joint Replacement Myasthenia Gravis Osteoarthritis Systemic Lupus Hx of Psycho/Social Problems?: No Hx Surgeries?: Yes (Bowel resection) Hx Any Other Health Problems?: Yes Other History: Positive for:: Cancer (Skin CA) Hospitalization (March 03) Thyroid Disease Denies:: Endocrine Disease History Blood Transfusions: Positive for:: Accept Blood Products? Denies:: Blood Transfuse Reaction Blood Transfusions Hx Diabetes: Yes Hx Alcohol Use: NoHx Substance Use: No Smoking Status: Never Smoker Have You Smoked inLast 12 mo: No Stop/Bang S-Snoring: Do You Snore Loudly: No T-Tired: feel tired, fatigued: No O-Obsered: Observed not breath: No P-Blood Pressure: treated: Yes B- Body Mass Index > 35 kg/m2: No A- Age over 50: Yes N- Neck Large Circumference: No G- Gender Male: No JENNIFER Total Score: 2 JENNIFER Risk Assessment: Low Risk, <3 Yes Risk Assessment Category Category 1A: Patient has history of documented sleep apnea, and HAS NOT received any narcotic, sedative or anesthesia administration during this stay. Category 1B: Patient has history of documented sleep apnea, and HAS received any narcotic , sedative or anesthesia administration during this stay Category 2: Patient has SUSPECTED Obstructive Sleep Apnea, and HAS received any narcotic , sedative or anesthesia administration during this stay. Category 3: Patient has SUSPECTED Obstructive Sleep Apnea and HAS NOT received narcotic, sedative or anesthesia administration during this stay. Category 4: Outpatient in Procedural Areas with known sleep apnea or who screen positive for High Risk via the STOP/BANG questionnaire. Exam Exam General Appearance: Alert, Oriented X3, Cooperative, No Acute Distress HEENT/AIRWAY: MP 2 Lungs: Clear to Auscultation, Normal Air Movement Heart: Exam Unremarkable, Regular Rate/Rhythm, No Murmurs/Rubs/Gallops Plan Impression Patient chart reviewed, patient interviewed and anesthestic plan with risks, benefits, and alternatives discussed, and informed consent obtained. NPO per Anesth. Guidelines: Yes ASA Physical Status: ASA2 Mod Systemic Disease Anesthetic Plan: GA Bene/Risks/Altern/Consents: Yes HP Complete Prior to Induction: Yes Yuval Doherty MD Mar 18, 2017 06:42
[2017-03-18] MEDS: Lactated Ringer's 1,000 ML IV SCH ×2 (11:11→14:02)
--- NOTE | 2017-03-18 15:12 | PCM.ANEP1 ---
Post Anesthesia PACU Phase 1 Assessment Vital Signs Vital Signs Date Time Temp Pulse Resp B/P Pulse Ox O2 Delivery O2 Flow Rate FiO2 03/18/17 15:10 92 14 142/55 100 Simple Mask 10 03/18/17 15:05 36.6 90 16 128/59 100 Simple Mask 10 03/18/17 11:47 36.2 84 16 133/41 93 Room Air Anesthetic Administered: GA Level of Alertness: Awake, talking HAWK's with Equal Strength: Yes Pain: No Nausea or Vomiting: No CV Function & Hydration Stable: Yes Airway Device: Oxygen Delivery: Simple Mask Lungs: Clear to Auscultation, Normal Air Movement PACU Phase 2 Assessment Patient Instructions Provided: N/A Yuval Doherty MD Mar 18, 2017 15:12
--- NOTE | 2017-03-18 18:51 | DRSVH ---
PROCEDURE: X-RAY KUB ([id number]) INDICATIONS: RIGHT KIDNEY STONE TECHNIQUE: One view of the abdomen acquired. COMPARISON: [facility], CT, ABDOMEN/PELVIS WITHOUT CONTRAS, 03/01/2017, 15:29. FINDINGS: Surgical changes and devices: Right ureteral stent present in expected position. Bowel: Bowel gas pattern is normal. Soft tissues: 1.3 cm calcification projected over the proximal right ureter. 9 mm calcification proj ected over the mid left kidney. Multiple calcifications projected over the mid pelvis as was seen on prior CT scan. Bones: No suspicious bony lesions. IMPRESSION: 1. Right ureteral stent in expected position. 2. Proximal right ureteral stone measuring 1.3 cm. 3. 9 mm left renal calcification. 4. Multiple pelvic calcifications redemonstrated. Dictated by: José Miguel Hurst [facility] Interpreted: Carina Bolden MD on 03/18/2017 at 12:00 Approved by: Carina Bolden M.D. on 03/18/2017 at 18:49
--- NOTE | 2017-03-18 20:45 | OP ---
[address] [address] OPERATIVE REPORT PATIENT: ASHU REAL : 1945 MR#: [id number] ADMIT: 03/18/2017 JOB ID: [id number] DATE OF SURGERY: 03/18/2017 SURGEON: Maxime Keen MD PREOPERATIVE DIAGNOSIS(ES): 1. A 7 x 8 mm right proximal ureteral calculus. 2. History of right renal colic. 3. Indwelling right ureteral stent. POSTOPERATIVE DIAGNOSIS(ES): 1. A 7 x 8 mm right proximal ureteral calculus. 2. History of right renal colic. 3. Indwelling right ureteral stent. OPERATION PERFORMED: 1. Right extracorporeal shock wave lithotripsy (maximal power level of 5.0 x2500 shocks). 2. Cystoscopy, right ureteral stent removal. ANESTHESIOLOGIST: Yuval Doherty MD ANESTHESIA: General. PROCEDURE SUMMARY: Following the administration of general anesthetic, the patient was positioned appropriately on the lithotripsy treatment table in the supine position. The above-described stone overlying the proximal portion of the right ureter was then localized in the X, Y, and Z planes. Lithotripsy was next commenced at minimal power level for 200 shocks. A 2 minute pause was then conducted. Lithotripsy was then once again commenced at minimal power level and gradually increased to a maximal power level of 5. The stone and its fragments were relocalized several times throughout the treatment cycle. A total of 2500 shocks were delivered with excellent evidence of stone comminution. The patient was then repositioned in semi-lithotomy, and the lower abdomen, genitalia, and groin were prepped and draped in sterile fashion. The 22-Indonesian panendoscope was then passed to the lower urinary tract with findings of an intact right indwelling stent and mildly turbid and blood-tinged urine obscuring clear visualization of the helton. The visualized stent was then engaged with alligator foreign body graspers and was removed without incident. The stent was then discarded. The bladder was drained completely. The patient was then repositioned supine, awakened, and transferred to [facility], and transferred to recovery in stable condition.
== END | disposition home or self-care (01) ==
LOC: SAS 10:36
PROVIDERS: ATTEND Specialist
DX: N20.2 Calculus of kidney with calculus of ureter (principal); I12.0 Hypertensive chronic kidney disease with stage 5 chronic kidney disease or end stage renal disease; E11.22 Type 2 diabetes mellitus with diabetic chronic kidney disease; N18.6 End stage renal disease; E03.9 Hypothyroidism, unspecified; M06.9 Rheumatoid arthritis, unspecified; E66.01 Morbid (severe) obesity due to excess calories; Z86.010 Personal history of colon polyps; Z85.828 Personal history of other malignant neoplasm of skin; Z79.82 Long term (current) use of aspirin; Z79.84 Long term (current) use of oral hypoglycemic drugs; Z68.38 Body mass index [BMI] 38.0-38.9, adult
CPT/HCPCS: 50590; 52310; 74000; J0131; J0690; J1100; J1940; J2250; J2405; J3010; J7120

== ENCOUNTER → 2017-05-13 | Day surgery (SDC) | payer OTHER ==
[2017-05-13] VITALS (8 sets, daily range): BP systolic 119–152; BP diastolic 51–91; PULSE 76–98; RESP 10–19; O2SAT 95–99
[~2017-05-13] VITALS: Ht 157.5 cm; Wt 86.7 kg
[~2017-05-13] MED LIST changes: +Albuterol-Ipratropium 3 mL Inhalation Solution NEB PRN; -CeFAZolin 2 Gm/50 mL D5W Duplex Bag IV ONE; -CeFAZolin 2 Gm/50 mL D5W IV Premix IV ONE; +Labetalol 5 mg/mL 20 mL Inj IV PRN; -Labetalol 5 mg/mL 4 mL Inj IV PRN; -VIT1TABL83 PO; -hydrOXYzine Inj 50 MG/1 mL SDV IM PRN
--- NOTE | 2017-05-13 08:43 | PCM.HPANE ---
Patient Data Surgeon Admitting Provider: Attending Provider:Maxime Keen MD Primary Care Physician:Maritza Vazquez MD Other Provider:Cosmo Christianson Anesthesia Reason for Visit Left Kidney Stone Ht/WT & BMI Height (Feet): 5 Height (Inches): 2 Weight (Kilograms): 90.71 Body Mass Index 36.00 Allergies Coded Allergies: iodine (Verified Allergy, Severe, Anaphalactic reactions, 03/16/17) shellfish derived (Verified Allergy, Severe, Anaphalactic reaction, ) bee pollen (Verified Allergy, Unknown, UNKNOWN, 03/02/17) Uncoded Allergies: ANYTHING THAT COMES OUT OF OCEAN (Allergy, Severe, anaphalaxis, 03/03/17) Past Anesthesia History Anesthesia History: Denies:: Abnormal Airway, Anesthesia Reactions (PONV ), Difficult Intubation, Fam Anesthesia Reaction, Fam Malignant Hypertherm, Malignant Hyperthermia Diabetes History Hx Diabetes?: Yes (last Hgb 1c 5.25 december 2016) Type of Diabetes: Type II Glycemic Control: Oral Medication MRSA MRSA: No Medications Blood Thinner: Aspirin Hypertension Medication: Yes Home Meds Incl Beta Tuan: No Reported Medications Oxycodone (Roxicodone)5 Mg Tablet5 Mg PO Q4H PRN For Pain Ref 0 03/03/17 Cranberry Extract (Cranberry)300 Mg [id number] Mg PO BID 03/02/17 Latanoprost 2.5 Ml Drops1 Gtt AFFECT_EYE HS #1 BOTTLE 03/02/17 Atorvastatin (Lipitor)10 Mg Tab10 Mg PO DAILY Ref 0 03/02/17 [Kian] No Conflict Check1 Tab PO HS 12/25/16 Cholecalciferol (Vitamin D3) (Vitamin D3)2,000 Unit Capsule1,000 Unit PO DAILY 12/24/16 Acetaminophen/Diphenhydramine (Tylenol Pm Ex-Strength Caplet)500 Mg-25 Mg Tablet1 Each PO 12/24/16 Levothyroxine (Tirosint)75 Mcg Qthdwbx97 Mcg PO DAILY 12/24/16 Timolol Maleate/Pf (Timoptic 0.5% Ocudose Drop)1 Each Droperette1 Each AFFECT_ EYE BID 12/24/16 Sulfasalazine 500 Mg Tablet1,500 Mg PO BID 30 Days Ref 0 12/24/16 Lactobacillus Acidophilus (Probiotic)1 Each Capsule1 Each PO BID 12/24/16 Oxybutynin Chloride 5 Mg Tablet5 Mg PO BID Ref 0 12/24/16 Metformin 500 Mg Odpoty411 Mg PO BID Ref 0 12/24/16 Losartan Potassium 100 Mg Tcujjv896 Mg PO DAILY 12/24/16 Leflunomide 20 Mg Iemuoy69 Mg PO DAILY 12/24/16 Adalimumab (Humira)40 Mg/0.8 Ml Pen.ij.kit40 Mg SQ q2 weeks 12/24/16 Glipizide 10 Mg Jdoyzj00 Mg PO BID 30 Days TAKES 5MG IN AM; 10MG IN PM 12/24/16 Gabapentin 300 Mg Iedwhqm054 Mg PO DAILY Ref 0 12/24/16 Fenofibrate (Lipofen)150 Mg Vtjmieo072 Mg PO DAILY 12/24/16 Ciprofloxacin 500 Mg/5 Ml Carmen.mc.jlp744 Mg PO HS 12/24/16 Aspirin 81 Mg Gorsqy99 Mg PO DAILY Ref 0 12/24/16 History History of ENT Problems?: Yes HEENT History: Denies:: Abnormal Airway Cataracts Difficult Intubation Dysphagia Hearing Problem Sinus Problem TMJ Denture Type: None Teeth Condition: Within Normal Limits Hx of Heart Problems?: Yes Cardiovascular History: Positive for:: Hypertension Denies:: AICD Abdominal Aortic Aneurism Atrial Fibrillation Cardiac Surgery Chest Pain Congestive Heart Failure Edema Heart Murmur Irregular Heartbeat Pacemaker Rheumatic Fever Thrombophlebitis Valvular Heart Disease Hx of Respiratory Problem?: Yes Respiratory History: Positive for:: Pneumonia (prior hx of- none since having vaccine) Denies:: Asthma COPD Chest Surgery Cough Dyspnea Emphysema Hemoptysis Oxygen Administration Pulmonary Embolism Tuberculosis Use of C-PAP Machine Hx Neurologic Problems?: No Neurological History: Denies:: CVA Multiple Sclerosis Parkinson's Disease Seizures Hx of GI Problems?: Yes Other GI Pertinent History: hx of benign tumor removal- colon Hx of Problems?: Yes Genitourinary History: Positive for:: Kidney Stones (left current problem, hx of right eswl 02/2017) Urinary Tract Infection (hx of urosepsis) Denies:: HX of Hemodialysis (chronic renal insufficiency) Female Hx: Denies:: Currently (tubal) Problems with Breasts? Skin History: Denies:: History Skin Disorders? Pressure Ulcers Hx Musculoskeletal Problems?: Yes Musculoskeletal History: Positive for:: Back Injury (surgical repair L3-4 Lami and alignment) Denies:: Degenerative Joint Joint Replacement Musculoskeletal Trauma (prior hx shoulder repair) Systemic Lupus Hx of Psycho/Social Problems?: No Hx Surgeries?: Yes (Bowel resection, ESWL, munir, HH) Hx Any Other Health Problems?: Yes Other History: Positive for:: Cancer (Skin CA) Hospitalization (March 03) Thyroid Disease Denies:: Endocrine Disease History Blood Transfusions: Denies:: Blood Transfuse Reaction Blood Transfusions Hx Diabetes: Yes (last Hgb 1c 5.25 december 2016) Hx Alcohol Use: NoHx Substance Use: No Smoking Status: Never Smoker Have You Smoked inLast 12 mo: No Stop/Bang S-Snoring: Do You Snore Loudly: No T-Tired: feel tired, fatigued: No O-Obsered: Observed not breath: No P-Blood Pressure: treated: Yes B- Body Mass Index > 35 kg/m2: Yes A- Age over 50: Yes N- Neck Large Circumference: No G- Gender Male: No JENNIFER Total Score: 3 JENNIFER Risk Assessment: High Risk, =/>3 Yes Risk Assessment Category Category 1A: Patient has history of documented sleep apnea, and HAS NOT received any narcotic, sedative or anesthesia administration during this stay. Category 1B: Patient has history of documented sleep apnea, and HAS received any narcotic , sedative or anesthesia administration during this stay Category 2: Patient has SUSPECTED Obstructive Sleep Apnea, and HAS received any narcotic , sedative or anesthesia administration during this stay. Category 3: Patient has SUSPECTED Obstructive Sleep Apnea and HAS NOT received narcotic, sedative or anesthesia administration during this stay. Category 4: Outpatient in Procedural Areas with known sleep apnea or who screen positive for High Risk via the STOP/BANG questionnaire. Exam Exam General Appearance: Alert, Oriented X3, Cooperative, No Acute Distress HEENT/AIRWAY: MP 1 Lungs: Normal Air Movement Heart: Exam Unremarkable Plan Impression Patient chart reviewed, patient interviewed and anesthestic plan with risks, benefits, and alternatives discussed, and informed consent obtained. NPO per Anesth. Guidelines: Yes ASA Physical Status: ASA2 Mod Systemic Disease Anesthetic Plan: GA Bene/Risks/Altern/Consents: Yes HP Complete Prior to Induction: Yes Jalil Cheung MD May 13, 2017 08:43
[2017-05-13] MEDS: Lactated Ringer's 1,000 ML IV SCH ×2 (09:45→12:00)
--- NOTE | 2017-05-13 11:29 | DRSVH ---
PROCEDURE: X-RAY KUB ([id number]) INDICATIONS: KIDNEY STONE TECHNIQUE: One view of the abdomen acquired. COMPARISON: [facility], CT, ABDOMEN/PELVIS WITHOUT CONTRAS, 03/01/2017, 15:29. Merged with [facility], CR, XR KUB, 03/18/2017, 11:02. [facility], CR, XR KUB, 04/09/2017, 14:08. FINDINGS: Surgical changes and devices: Post cystectomy clips. Lower lumbar spine fixation hardware redemonstr ated. Bowel: Bowel gas pattern is normal. Soft tissues: Roughly 1.0 cm calcification again seen projected over the mid-upper pole of the left k idney. Midline pelvic calcifications again noted as was seen on prior CT scan. Bones: No suspicious bony lesions. IMPRESSION: Left renal calcification unchanged. Dictated by: José Miguel Hrust A Interpreted: Lyly Leigh MD on 05/13/2017 at 9:59 Approved by: Lyly Leigh MD, PhD on 05/13/2017 at 11:26
--- NOTE | 2017-05-13 13:05 | PCM.ANEP1 ---
Post Anesthesia PACU Phase 1 Assessment Vital Signs Vital Signs Date Time Temp Pulse Resp B/P Pulse Ox O2 Delivery O2 Flow Rate FiO2 05/13/17 13:00 36.7 78 12 148/70 95 Room Air 05/13/17 12:55 78 10 131/76 95 Room Air 05/13/17 12:51 80 19 119/64 98 Room Air 05/13/17 12:45 89 11 133/55 97 Room Air 05/13/17 12:42 36.7 98 11 149/61 97 Room Air 05/13/17 10:06 36.4 76 16 152/51 97 Room Air Anesthetic Administered: GA Level of Alertness: Awake, talking HAWK's with Equal Strength: Yes Pain: No Nausea or Vomiting: No CV Function & Hydration Stable: Yes Airway Device: Oxygen Delivery: Room Air Lungs: Normal Air Movement PACU Phase 2 Assessment Complications: No Follow up Care: No Patient Instructions Provided: N/A Jalil Cheung MD May 13, 2017 13:05
--- NOTE | 2017-05-13 14:43 | OP ---
[address] [address] OPERATIVE REPORT PATIENT: ASHU REAL : 1945 MR#: [id number] ADMIT: 05/13/2017 JOB ID: [id number] DATE OF SURGERY: 05/13/2017 PREOPERATIVE DIAGNOSIS(ES): 1. A 7 mm left renal calculus. 2. Intermittent left renal colic. POSTOPERATIVE DIAGNOSIS(ES): 1. A 7 mm left renal calculus. 2. Intermittent left renal colic. OPERATION PERFORMED: Left extra corporal shock wave lithotripsy (ESWL) (power range 4 to 7, max 7, total 2500 shocks). SURGEON: Maxime Keen MD ANESTHESIOLOGIST: Jalil Cheung MD ANESTHESIA: General. PROCEDURE SUMMARY: The patient was positioned supine on the lithotripsy gurney and the above-described stone was localized in the X, Y and Z plane. Lithotripsy was then commenced at minimal power level and gradually increased to maximum power level. The stone and its fragments were relocalized numerous times throughout the case using C-arm radiography. The procedure was then terminated. The patient was awakened, transferred to the gurney and transferred to the recovery area awake in stable condition. The patient tolerated the procedure well.
== END | disposition home or self-care (01) ==
LOC: SAS 09:10
PROVIDERS: ATTEND Specialist
DX: N20.0 Calculus of kidney (principal); M06.9 Rheumatoid arthritis, unspecified; E11.9 Type 2 diabetes mellitus without complications
CPT/HCPCS: 50590; 74000; J0131; J1100; J1940; J2250; J2405; J2704; J3010; J7120